=== PATIENT | female | born 1990 | race Hispanic/Latino ===

== ENCOUNTER 2016-10-12 06:25 | Inpatient (IN) | payer MEDICAID ==
[2016-10-12] MEDS: Lactated Ringer's 1,000 ML IV SCH ×2 (06:45→07:50)
[2016-10-12] MEDS ORDERED: ceFAZolin 2 GM in Sodium Chloride 0.9% 100 ML IVPB ONE (06:50)
[2016-10-12 06:52] VITALS: BMI 34.4
[2016-10-12] MEDS ORDERED: Oxytocin 30 units/LR 500ML 30 U/500 ML BAG IV ONE ×3 (07:41→09:18)
[2016-10-12 07:43] VITALS: BP 128/87; PULSE 107; TEMP 98.5
[2016-10-12 08:17] LABS: BASO % 0.4 % (0.0-2.0); EOS # 0.5 K/uL (0.0-0.7); EOS % 4.4 % (0.0-4.0); HEMATOCRIT 34.2 % (34.0-47.0); LYMPH # 2.4 K/uL (1.0-4.3); LYMPH % 23.2 % (20.0-40.0); MEAN CORPUSCULAR HEMOGLOBIN 28.1 pg (27.0-31.0); MEAN CORPUSCULAR HGB CONC 32.7 g/dL (33.0-37.0); MEAN PLATELET VOLUME 7.9 fl (7.2-11.7); MONO # 0.7 K/uL (0.0-0.8); MONO % 6.3 % (0.0-10.0); NEUT # 6.9 K/uL (1.8-7.0); NEUT % 65.7 % (50.0-75.0); RED CELL DISTRIBUTION WIDTH 13.3 % (11.5-14.5); WHITE BLOOD COUNT 10.5 K/uL (4.8-10.8)
[2016-10-12] MEDS ORDERED: Morphine 5 mg/10 ml preservative-free Inj(Duramorph) ONE (08:41)
[2016-10-12] MEDS ORDERED: Phenylephrine 10 mg/ml Inj ONE (08:42)
--- NOTE | 2016-10-12 08:46 | OBHP ---
Datetime: 10/12/2016 06:38 IP Adm Impression: Term, intrauterine IP Admit Plan: Admit to unit; Initiate Section protocol Admit Comment, IP Provider: This is a 25 y/o at 39.1 weeks GA with a MARGOTH 10/18/[address] [place] [address], presenting for scheduled repeat . Pt feeling well. Pt report + FM. Pt denies fever, H/A, visual disturbances, CP, SOB, vaginal bleeding, CTX, dysuria or LOF. NKDA. Medicatins: PNV. PMHx: denied. PSHx: denied. OBHx: . 2 previous C-sections. SHx: No tobacco, alcohol or recreational drugs. A_P: IUP at 39.1 weeks GA, here for scheduled repeat . Transfer PNC from [place] at 37 weeks GA. Pt will be admitted and protocol will be initiated. Antonio Wells PGY-1. The patient was seen with the resident and I agree with note Informed consent obtained we discussed risks benefits and alternatives to repeat section patient was given the opportunity ask questions and all questions answered Pelvic Type - PN: Adequate Extremities - PN: Normal Abdomen - PN: Normal Back - PN: Normal Lungs - PN: Normal Heart - PN: Normal Neurologic - PN: Normal HEENT - PN: Normal General - PN: Normal FHR - Baseline A Provider: 150 Gestation - Est Wks by US: 39.1 EGA AdmitDate IP: 39.1 Vital Signs Provider: Reviewed IP Chief Complaint: Scheduled Section NICHD Variability Prov Fetus A: Moderate 6-25bpm NICHD Accel Fetus A IP Provider: [id number] FHR Category Provider Fetus A: Category I Dilatation, Provider: 0 Effacement, Provider: 0 Genitourinary Exam: Not Done
--- NOTE | 2016-10-12 09:03 | OBDS ---
MATERNAL INFORMATION Provider Comments: See operative note LABOR SUMMARY EDC: 10/18/2016 00:00 No. Babies in Womb: 1 LABOR INFORMATION Group B Beta Strep: Negative
[2016-10-12] MEDS ORDERED: DiphenhydrAMINE 50 mg/ml Inj IVP PRN ×2 (09:27→12:11)
[2016-10-12] MEDS ORDERED: Oxycodone/Acetaminophen 5/325 mg Tab PO PRN ×3 (09:56→12:11)
[2016-10-12] MEDS ORDERED: Lactated Ringer's 1,000 ML IV SCH (10:00)
[2016-10-12] MEDS ORDERED: Simethicone 80 mg Chewtab PO SCH (10:00)
[2016-10-12] MEDS ORDERED: DiphenhydrAMINE 50 mg/ml Inj ONE (10:58)
--- NOTE | 2016-10-12 13:25 | OP ---
PROCEDURE DATE: 10/12/2016 PREOPERATIVE DIAGNOSIS: Intrauterine at 39 weeks, history of 2 previous sections. POSTOPERATIVE DIAGNOSIS: Intrauterine at 39 weeks, history of 2 previous sections. OPERATION PERFORMED: Repeat left low flap transverse section via Pfannenstiel skin incision. SURGEON: Dr. Cristiano Dee. CASTING OPERATOR HELPER: Dr. Soria. ANESTHESIA: Spinal, administered by Dr. Perez ESTIMATED BLOOD LOSS: 800 mL. URINE OUTPUT: Nugent catheter put out approximately 150 mL of clear urine. IV FLUID INTAKE: The patient received approximately 1 liter of D5 LR intraoperatively. OPERATIVE FINDINGS: Baby girl. 's 9 and 9, weighing 3170 g. Normal uterus, tubes, and ovaries were identified. CASTING OPERATOR HELPER: Dr. Soria was the assistant boiler operator in the procedure. He was instrumental in care of the patient. He was helpful in delivering the infant, obtain hemostasis and closure of the patient. The procedure would not have been possible without his assistance. PROCEDURE: After informed consent was obtained, the patient was taken to the operating room where she was given spinal anesthesia. She was then prepped and draped in the normal sterile fashion with a leftward tilt. A Pfannenstiel skin incision was then made with the scalpel and carried down to the underlying layer of fascia. The fascia was then nicked in the midline. The fascial incision was then extended laterally with the curved Vu scissors. The superior aspect of the fascial incision was then grasped with Ke clamps, elevated up and the rectus muscles were dissected off using both sharp and blunt dissection. Attention was then turned to the inferior aspect of the fascial incision. It was grasped with Ke clamps, elevated up and the rectus muscles were using both sharp and blunt dissection. The rectus muscle was then in the midline, the peritoneum identified, entered sharply with the Metzenbaum scissors. The peritoneal incision was then extended superiorly and inferiorly with good visualization of the bladder. The bladder blade was then inserted. The vesicouterine peritoneum was identified and entered sharply with the Metzenbaum scissors. The incision was then extended laterally and the bladder flap was created digitally. The bladder blade was then inserted. A low transverse incision was then made with the scalpel. The incision was then extended laterally with the bandage scissors. The infant's head was then delivered atraumatically. The nose and mouth were suctioned with a DeLee suction trap. The cord was clamped and cut. The was handed off to waiting pediatricians. The placenta was then removed manually. The uterus was exteriorized and cleared off all clots and debris. The uterine incision was repaired with 0 Vicryl in a running fashion. Second suture was used to obtain excellent hemostasis. The uterus was then returned to the abdomen. The gutters were cleared off all clots and debris. The abdomen was then copiously irrigated. The irrigant was removed with the suction device and hemostasis was noted. The peritoneum was then closed with 2-0 Vicryl in a running fashion. The muscles were re-approximated with 0-Vicryl in an interrupted fashion. The fascia was closed with 0-Vicryl in a running fashion. The skin was closed with 4-0 on a Elkin needle. All sponge, lap, needle and instrument counts were correct x2 and the patient was taken to recovery room in awake and stable condition. Cristiano Dee MD [email or web address]
[2016-10-12] MEDS: Simethicone 80 mg Chewtab PO SCH ×2 (17:25→22:23)
[2016-10-13] MEDS: Simethicone 80 mg Chewtab PO SCH ×4 (05:30→21:32)
[2016-10-13] MEDS: Oxycodone/Acetaminophen 5/325 mg Tab PO PRN ×2 (06:14→16:33)
[2016-10-13 06:17] LABS: MEAN CELL VOLUME 85.8 fl (81.0-99.0); MEAN CORPUSCULAR HEMOGLOBIN 28.3 pg (27.0-31.0); MEAN CORPUSCULAR HGB CONC 32.9 g/dL (33.0-37.0); RED CELL DISTRIBUTION WIDTH 13.1 % (11.5-14.5); WHITE BLOOD COUNT 10.8 K/uL (4.8-10.8)
--- NOTE | 2016-10-13 08:17 | OBPPN ---
Datetime: 10/13/2016 08:08 PP Pain Prov: Within normal limits PP Flatus Prov: No PP Abdomen/Uterus Prov: Normal PP Lochia Prov: Normal PP Extremities Prov: Normal PP C/S Incision Prov: Normal PP Progress Prov: Not Applicable PP Comments Phys Exam Prov: Incision w/ bandage in place PP Impression Prov: Normal progression PP Plan Prov: Continue present management PP Progress Note Prov: POD 1 s/p repeat c/s, doing well, bottle feeding Encourage OOB Vital Signs Provider PP: Reviewed
[2016-10-14] MEDS: Simethicone 80 mg Chewtab PO SCH ×5 (05:37→21:13)
[2016-10-14] MEDS: Oxycodone/Acetaminophen 5/325 mg Tab PO PRN ×2 (05:38→21:15)
[2016-10-15] MEDS: Simethicone 80 mg Chewtab PO SCH ×2 (05:07→10:41)
--- NOTE | 2016-10-15 09:18 | OBPPN ---
Datetime: 10/15/2016 09:15 PP Pain Prov: Within normal limits PP Nausea Prov: Denies PP Flatus Prov: Yes PP BM Prov: Yes PP Breasts Prov: Normal PP Heart Prov: Normal PP Lungs Prov: Normal PP Abdomen/Uterus Prov: Normal PP Lochia Prov: Normal PP Vulva/Perineum Prov: Normal PP CVA Tenderness Prov: Normal PP Extremities Prov: Normal PP C/S Incision Prov: Normal PP Progress Prov: Normal PP Impression Prov: Normal progression PP Plan Prov: Discharge PP Progress Note Prov: H/H A: S/P C/Section day 3 PLAN: dischagre home and follow up in 1-2w [facility] Vital Signs Provider PP: Reviewed; Within Normal Limits
[2016-10-15] MEDS: Oxycodone/Acetaminophen 5/325 mg Tab PO PRN (09:45)
--- NOTE | 2016-10-26 13:44 | OBADHP ---
Datetime: 10/12/2016 06:38 Admit Comment, IP Provider: This is a 25 y/o at 39.1 weeks GA with a MARGOTH 10/18/[address] [place] [address], presenting for scheduled repeat . Pt feeling well. Pt report + FM. Pt denies fever, H/A, visual disturbances, CP, SOB, vaginal bleeding, CTX, dysuria or LOF. NKDA. Medicatins: PNV. PMHx: denied. PSHx: denied. OBHx: . 2 previous C-sections. SHx: No tobacco, alcohol or recreational drugs. A_P: IUP at 39.1 weeks GA, here for scheduled repeat . Transfer PNC from [place] at 37 weeks GA. Pt will be admitted and protocol will be initiated. Antonio Wells PGY-1. The patient was seen with the resident and I agree with note Informed consent obtained we discussed risks benefits and alternatives to repeat section patient was given the opportunity ask questions and all questions answered Pelvic Type - PN: Adequate Extremities - PN: Normal Abdomen - PN: Normal Back - PN: Normal Lungs - PN: Normal Heart - PN: Normal Neurologic - PN: Normal HEENT - PN: Normal General - PN: Normal FHR - Baseline A Provider: 150 Gestation - Est Wks by US: 39.1 Vital Signs Provider: Reviewed IP Chief Complaint: Scheduled Section NICHD Variability Prov Fetus A: Moderate 6-25bpm NICHD Accel Fetus A IP Provider: 15X15 FHR Category Provider Fetus A: Category I Dilatation, Provider: 0 Effacement, Provider: 0 Genitourinary Exam: Not Done EGA AdmitDate IP: 39.1 IP Adm Impression: Term, intrauterine IP Admit Plan: Admit to unit; Initiate Section protocol
== END 2016-10-15 14:20 | disposition home or self-care (01) | DRG 371 ==
LOC: H.EROB2 06:25 → MERGE 06:54 → H.L&D 06:54 → H.OB/GYN 11:45
PROVIDERS: ADMIT Obstetrics & Gynecology Gynecology; ATTEND Obstetrics & Gynecology Gynecology
PROC: 10D00Z1 Extraction of Products of Conception, Low, Open Approach (ICD-10-PCS; principal; 2016-10-12)
PROC: 4A1HXCZ Monitoring of Products of Conception, Cardiac Rate, External Approach (ICD-10-PCS; 2016-10-12)
DX: O34.219 Maternal care for unspecified type scar from previous cesarean delivery (principal); Z37.0 Single live birth; Z3A.39 39 weeks gestation of pregnancy